=== PATIENT | female | born 1980 | race Caucasian/White ===

== ENCOUNTER 2018-08-30 06:04 | Emergency (ER) | payer OTHER ==
[2018-08-30 06:06] VITALS: BMI 23.8
--- NOTE | 2018-08-30 07:40 | ED PDOC ---
Arrival/HPI - General Historian: Patient - History of Present Illness Narrative History of Present Illness (Text): 08/30/18 07:36 Patient is a 38 year old female with no significant past medical history who presents s/p x 2 weeks ago at [facility] with burning rectal pain that started yesterday. Patient states that after the delivery she was treated for external hemorrhoids with protozone HC 2.5% with relief. She reports feeling constipated, last bowel movement was 3-4 days ago. She has been taking OTC stool softeners but unsure what the name is. Rectal pain is constant, burning sensation. Rates that pain a 10/10 on pain scale with no radiation. Motrin makes it better, passing gas makes it worse. Offers no other complaints at this time. Time/Duration: 24 hours Symptom Onset: Sudden Quality: Burning Severity Level: 10 <Larissa Fowler - Last Filed: 08/30/18 13:54> <Max Delacruz - Last Filed: 08/30/18 16:18> - General Chief Complaint: Female Genitourinary Time Seen by Provider: 08/30/18 07:13 Past Medical History - Provider Review Nursing Documentation Reviewed: Yes - Past History Past History: No Previous - Infectious Disease Hx of Infectious Diseases: None - Genitourinary/Gynecological Other/Comment: hemorroids - Psychiatric Hx Depression: No Hx Emotional Abuse: No Hx Physical Abuse: No Hx Substance Use: No - Anesthesia Hx Anesthesia: No - Suicidal Assessment Feels Threatened In Home Enviroment: No <Larissa Fowler - Last Filed: 08/30/18 13:54> Family/Social History - Physician Review Nursing Documentation Reviewed: Yes Family/Social History: Other Narrative Family History (Free Text): 08/30/18 07:42 Mother - Alzheimer's Disease Smoking Status: Never Smoked Hx Alcohol Use: No Hx Substance Use: No Hx Substance Use Treatment: No <Larissa Fowler - Last Filed: 08/30/18 13:54> Allergies/Home Meds <Larissa Fowler - Last Filed: 08/30/18 13:54> <Max Delacruz - Last Filed: 08/30/18 16:18> Allergies/Adverse Reactions: Allergies No Known Allergies Allergy (Verified 08/30/18 06:31) Review of Systems - Physician Review All systems were reviewed & negative as marked: Yes - Review of Systems Constitutional: Normal Eyes: Normal. absent: Vision Changes Respiratory: Normal. absent: SOB, Cough Cardiovascular: Normal. absent: Chest Pain, Palpitations Gastrointestinal: Constipation. absent: Abdominal Pain, Stool Changes, Di arrhea, Nausea, Vomiting, Hematochezia Genitourinary Female: Vaginal Discharge. absent: Frequency, Hematuria, Vaginal Bleeding Skin: Normal. absent: Rash, Skin Lesions Neurological: Normal Psychiatric: Anxiety. absent: Depression <Larissa Fowler - Last Filed: 08/30/18 13:54> Physical Exam Vital Signs Reviewed: Yes Vital Signs Temp Pulse Resp BP Pulse Ox 08/30/18 06:30 98.4 F 73 17 104/70 100 Temperature: Afebrile Blood Pressure: Normal Pulse: Regular Respiratory Rate: Normal Appearance: Positive for: Well-Appearing, Non-Toxic Pain Distress: Mild Mental Status: Positive for: Alert and Oriented X 3 - Systems Exam Head: Present: Atraumatic, Normocephalic Extroacular Muscles: Present: EOMI Conjunctiva: Present: Normal Respiratory/Chest: Present: Good Air Exchange Abdomen: No: Tenderness, Distention, Peritoneal Signs Rectal: Present: Rectal Tenderness, Normal Rectal Tone, Other (External thrombosed hemorrhoid). No: Gross Blood, Melena Genitourinary/Pelvic Exam: Present: Vaginal Discharge, Other (No perineal erythema or tenderness, sutures intact) Skin: Present: Warm, Dry, Normal Color Psychiatric: Present: Alert, Oriented x 3 <Larissa Fowler - Last Filed: 08/30/18 13:54> Vital Signs Temp Pulse Resp BP Pulse Ox 08/30/18 06:30 98.4 F 73 17 104/70 100 <Max Delacruz - Last Filed: 08/30/18 16:18> Medical Decision Making ED Course and Treatment: 08/30/18 07:54 Patient seen and evaluated with Dr Delacruz. Patient with external thrombosed hemorrhoids. Topical lidocaine ordered. Will call surgery for evaluation. 08/30/18 08:04 Discussed the case with medicine investigator internal affairs on surgery service. Will come down to see the patient. 08/30/18 11:03 Case discussed with surgical team. Recommending conservative management with sitz bathes, laxatives. Follow up with Dr Hoffman in 1 week or sooner if needed. 08/30/18 11:18 Discussed conservative treatment options vs surgical intervention option with the patient. Patient uncomfortable with going home and opted for I+D of thrombosed hemorrhoids. Consent signed. <Larissa Fowler - Last Filed: 08/30/18 13:54> ED Course and Treatment: 08/30/18 09:43 Patient Seen with Provider In agreement with resident note which contains more details about the patient. Patient seen and evaluated with resident. Came up with plan and treatment together. Impression: 38 year old female who presents to the emergency department with burning rectal pain. - Medication Orders Current Medication Orders: Discontinued Medications Lidocaine (Lidocaine 5%) 0 gm TOP STAT STA Stop: 08/30/18 07:59 Last Admin: 08/30/18 08:16 Dose: 1 applic <Max Delacruz - Last Filed: 08/30/18 16:18> Procedures - Time-Out Type of Procedure: Excision of Thrombosed External Hemorrhoid Site of Procedure: anal verge Correct Patient (with visual ID + MR# on ID Band): Yes Correct Procedure: Yes Medication Reconciliation / Bloodwork / Allergies Checked: Yes Physician Name: Jayme - Incision and Drainage Site: rectum at the 9 oclock position Blade Size: 11 I & D Procedure: betadine prep, sterile drapes applied, gauze wick placed Progress: a small hematoma was successfully excised. there was very minimal bleeding post procedure. patient tolerated procedure well. no complications encountered <Max Delacruz - Last Filed: 08/30/18 16:18> - Scribe Statement Jerri Shipman Provider Scribe Attestation: All medical record entries made by the Scribe were at my direction and personally dictated by me. I have reviewed the chart and agree that the record accurately reflects my personal performance of the history, physical exam, medical decision making, and the department course for this patient. I have also personally directed, reviewed, and agree with the discharge instructions and disposition. <Max Delacruz - Last Filed: 08/30/18 16:18> Disposition/Present on Arrival - Present on Arrival Any Indicators Present on Arrival: No History of DVT/PE: No History of Uncontrolled Diabetes: No Urinary Catheter: No History of Decub. Ulcer: No History Surgical Site Infection Following: None <Larissa Fowler - Last Filed: 08/30/18 13:54> - Present on Arrival Any Indicators Present on Arrival: No - Disposition Have Diagnosis and Disposition been Completed?: Yes Disposition Time: 12:22 Patient Plan: Discharge <Max Delacruz - Last Filed: 08/30/18 16:18> - Disposition Diagnosis: Thrombosed external hemorrhoid Disposition: HOME/ ROUTINE Condition: STABLE Discharge Instructions (ExitCare): Hemorrhoids, How to Do a Sitz Bath Additional Instructions: You must follow up with a rectal surgeon (perferably within one week). You may also see a general surgeon for follow up.If there is a delay you should return to the emergency department for a follow up examination. ALEYDA GALVAN, thank you for letting us take care of you today. Your provider was Dr. Max Delacruz and you were treated for thrombosed external hemorrhoid and constipation.. The emergency medical care you received today was directed at your acute symptoms. If you were prescribed any medication, please fill it and take as directed. It may take several days for your symptoms to resolve. Return to the Emergency Department if your symptoms worsen, do not improve, or if you have any other problems. Please contact your doctor or call one of the physicians/clinics you have been referred to that are listed on the Patient Visit Information form that is included in your discharge packet. Bring any paperwork you were given at discharge with you along with any medications you are taking to your follow up visit. Our treatment cannot replace ongoing medical care by a primary care provider outside of the emergency department. Thank you for allowing the [facility] team to be part of your care today. If you had an X-Ray or CT scan: A Radiologist will review the ED reading if any change in treatment is needed we will contact you. If you had a blood, urine, or wound culture: It will take several days for the results, if any change in treatment is needed we will contact you. If you had an STI test: It will take 48 hours for the results. Please call after 1 week if you have not heard back. Prescriptions: RX: Magnesium Citrate [Citrate of Mag] 300 ml PO DAILY 1 Days bottle Sennosides/Docusate Sodium [Colace 2-in-1 Tablet] 2 each PO BID 7 Days #14 tablet Referrals: [facility] [Outside] - Follow up with primary Klever Hoffman MD [Staff Provider] - Follow up with primary Forms: [employer] (Bulgarian), WORK NOTE
[2018-08-30] MEDS ORDERED: Lidocaine 5% Oint(35 gm) TOP STA ×2 (07:56→07:58)
[2018-08-30 10:55] VITALS: TEMP 98.2
[2018-08-30] MEDS ORDERED: Lidocaine 1%/Epinephrine 1:100000 30 ml vial IJ ONE (11:20)
[2018-08-30 12:50] VITALS: BP 110/71; PULSE 78; RESP 18; O2SAT 98
== END 2018-08-30 12:58 | disposition home or self-care (01) ==
LOC: ED 06:04
DX: K64.5 Perianal venous thrombosis (principal)